=== PATIENT | female | born 1960 | race Caucasian/White ===

== ENCOUNTER → 2017-05-03 | Outpatient (CLI) | payer OTHER | LOC: FIMAGING 10:05 | PROVIDERS: ATTEND Obstetrics & Gynecology | DX: Z12.31 Encounter for screening mammogram for malignant neoplasm of breast (principal) | CPT/HCPCS: G0202 ==

== ENCOUNTER 2017-06-17 15:08 | Emergency (ER) | payer OTHER ==
--- NOTE | 2017-06-17 15:31 | EDPHY ---
H & P Stated Complaint: URINARY RETENTION R/T PROLAPSED UTERUS Time Seen by Provider: 06/17/17 15:31 - Personal History Current Tetanus Diphtheria and Acellular Pertussis (TDAP): Yes - Medical/Surgical History Hx Asthma: No Hx Chronic Respiratory Disease: No Hx Diabetes: No Hx Cardiac Disease: No Hx Renal Disease: No Hx Cirrhosis: No Hx Alcoholism: No Hx HIV/AIDS: No Hx Splenectomy or Spleen Trauma: No Other PMH: disfunctional uterine bleeding, urinary retention, prolapsed uterus - Social History Smoking Status: Never smoked Constitutional: Initial Vital Signs Temperature (C) 36.8 C 06/17/17 15:13 Heart Rate 86 06/17/17 15:13 Respiratory Rate 16 06/17/17 15:13 Blood Pressure 182/101 H 06/17/17 15:13 O2 Sat (%) 95 06/17/17 15:13 O2 Delivery Mode Room Air Allergies/Adverse Reactions: No Known Allergies Allergy (Unverified 03/08/11 11:38) Home Medications: Medication Instructions Recorded Effexor 07/02/14 Tranexamic Acid 07/02/14 Medical Decision Making ED Course/Re-evaluation: CHIEF COMPLAINT: Urinary retention HISTORY OF PRESENT ILLNESS: The patient is a 57 y/o female complaining of inability to urinate for the last 11 hours. Her medical history includes breast cancer, prolapsed uterus, and prior episodes of urinary retention of unclear etiology. She has required Rendon catheterization during prior episodes and is requesting that treatment today. Her last episode occurred in February. She denies fever, vomiting, diarrhea, chest pain, dyspnea, or other symptoms. She is scheduled to follow up with her OBGYN this . REVIEW OF SYSTEMS: A 10 point review of systems was performed and is negative with the exception of the elements mentioned in the history of present illness. PHYSICAL EXAM: HR, BP, O2 Sat, RR. Temp noted General Appearance: Alert, well hydrated, appropriate, and non-toxic appearing. Head: Atraumatic without scalp tenderness or obvious injury Eyes: Pupils equal, round, reactive to light and accommodation, EOMI, no trauma , no injection. Nose: Atraumatic, no rhinorrhea, clear. Throat: Mucus membranes moist. Neck: Supple,nontender, no lymphadenopathy. Respiratory: No retractions, no distress, no wheezes, and no accessory muscle use. Lungs are clear to auscultation bilaterally. Cardiovascular: Regular rate and rhythm, no murmurs, rubs, or gallops. Good capillary refill all extremities. Gastrointestinal: Abdomen is soft, nontender, non-distended, no masses, no rebound, no guarding, no peritoneal signs. Rendon now in place. Musculoskeletal: Normal active ROM of all extremities, atraumatic. Neurological: Alert, appropriate, and interactive. The patient has non-focal cranial nerves, motor, sensory, and cerebellar exam. Skin: No rashes, good turgor, no nodules on palpation. Past medical history: dysfunctional uterine bleeding - adenomyosis on TXA, prolapsed and hypertrophic uterus, breast cancer - 2005, urinary retention Past surgical history: Uterine ablation Family history: Noncontributory Social history: Nonsmoker. . No alcohol use. OBGYN: Dr. Burciaga Prior medical records reviewed including ED visit 07/02/14 for urinary retention. DIAGNOSTICS/PROCEDURES/CRITICAL CARE TIME: Rendon catheter placed by ED staff. 850mL urine output. DIFFERENTIAL DIAGNOSIS: The differential diagnosis for the patient's urinary retention included but was not limited to medication side effect, neurologic causes, outflow obstruction including uterine prolapse and hypertrophy, and infection. MEDICAL DECISION MAKING: This is a 57 y/o female with a history of prolapsed and hypertrophic uterus and prior episodes of urinary retention who presents with an 11-hour history of urinary retention. She is requesting Rendon catheter only, which RN performed prior to my assessment. On assessment, she is feeling completely relieved and has drained 850mL of urine. Her abdomen is benign. She is ready to go home and plans to follow up with her OBGYN in 2 days. Return precautions discussed. She is comfortable with plan for discharge. Departure - Departure Disposition: Home, Routine, Self-Care Clinical Impression: Urinary retention Condition: Good Instructions: Chronic Urinary Retention in Women (ED) Additional Instructions: Follow up with Dr. Burciaga as scheduled. Return to the ED for any worsening of condition. Referrals: Paul Staples MD [Primary Care Provider] - As per Instructions Coni Burciaga MD [Medical Doctor] - As per Instructions Report Scribed for: Betito Pittman Report Scribed by: Verónica Trinh Date of Report: 06/17/17 Time of Report: 16:24
[2017-06-17 15:40] VITALS: BP 182/101; PULSE 86; RESP 16; TEMP 98.2; O2SAT 95
== END 2017-06-17 16:49 | disposition home or self-care (01) ==
PROC: 0T9B70Z Drainage of Bladder with Drainage Device, Via Natural or Artificial Opening (ICD-10-PCS; principal; 2017-06-17)
DX: R33.9 Retention of urine, unspecified (principal)